=== PATIENT | female | born 1955 | race Caucasian/White ===

== ENCOUNTER 2019-01-04 08:45 | Day surgery (SDC) | payer BC ==
[~2019-01-04] VITALS: Ht 182.9 cm; Wt 72.1 kg
[~2019-01-04 08:45] MED LIST: LEVAQUIN 5500 MG/TA1 PO; NORCO 325 MG-7.1 TAB PO; PARACETAMOL; [UNRECOGNIZED DRUG - OTHER]; [UNRECOGNIZED DRUG - OTHER]
[2019-01-04 09:03] VITALS: BP 110/73; PULSE 79; TEMP 98
[2019-01-04] MEDS ORDERED: OMEGA-3 1000 MG1 CAP PO (09:06)
[2019-01-04] MEDS ORDERED: MULTIPLE VITAMI1 CAP PO (09:06)
[2019-01-04] MEDS ORDERED: CALCIUM CARBON650 M2 PO (09:06)
[2019-01-04 11:20] VITALS: BP 103/68; PULSE 78; TEMP 97.9
--- NOTE | 2019-01-04 11:20 | NUR ---
Pt arrived to room from Endo procedure. Pt alert and oriented. Pt walked to chair with steady gait, x1 nurse assist. Pt denies any pain and nausea. Pt's family in room. Vital signs stable. Pt request coffee and muffin at this time. Call light in reach.
--- NOTE | 2019-01-04 11:22 | NUR ---
Report received from ARMAND Clemons.
[2019-01-04 11:35] VITALS: BP 100/62; PULSE 73; TEMP 97.9
--- NOTE | 2019-01-04 11:35 | NUR ---
Pt tolerating coffee and muffin. Denies any nausea. Pt's family in room. Call light in reach.
[2019-01-04 11:50] VITALS: BP 98/59; PULSE 68; TEMP 97.9
[2019-01-04 12:05] VITALS: BP 100/60; PULSE 68; TEMP 97.9
--- NOTE | 2019-01-04 12:15 | NUR ---
Discharge paperwork explained to pt and pt's . All questions answered to pt's satisfaction. Discharge instructions, med list and procedure information given to pt.
--- NOTE | 2019-01-04 12:18 | NUR ---
Pt discharged from unit. Pt left unit via wheelchair to private vehicle driven by pt's .
== END 2019-01-04 12:18 | disposition home or self-care (01) ==
LOC: SDCO 08:45
DX: D12.8 Benign neoplasm of rectum (principal); K64.0 First degree hemorrhoids; M19.90 Unspecified osteoarthritis, unspecified site; Z86.010 Personal history of colon polyps; Z85.828 Personal history of other malignant neoplasm of skin
CPT/HCPCS: J2250; J3010; J7030

== ENCOUNTER → 2019-04-12 | Outpatient (CLI) | payer BC ==
[~2019-04-12] MED LIST changes: +CALCIUM CARBON650 M2 PO; +MULTIPLE VITAMI1 CAP PO; +OMEGA-3 1000 MG1 CAP PO
== END ==
LOC: MC.RAD 14:46
DX: Z12.31 Encounter for screening mammogram for malignant neoplasm of breast (principal)

== ENCOUNTER → 2021-08-20 | Outpatient (CLI) | payer BC ==
[2021-08-20 12:22] LABS: BASO % 0.8 % (0.0-2.0); EOS # 0.2 K/mm3 (0.0-0.7); EOS % 3.2 % (0-4.0); GRAN # 3.3 K/mm3 (1.4-6.5); GRAN % 64.4 % (42.2-75.2); HEMATOCRIT 38.8 % (37.0-47.0); HEMOGLOBIN 12.3 g/dl (12.5-16.0); LYMPH # 1.2 K/mm3 (1.2-3.4); LYMPH % 24.1 % (20.0-51.0); MEAN CELL VOLUME 103 fl (80.0-100.0); MEAN CORPUSCULAR HEMOGLOBIN 33 pg (27.0-31.0); MEAN CORPUSCULAR HGB CONC 32 g/dl (33.0-37.0); MEAN PLATELET VOLUME 8.8 fl (7.4-10.4); MONO # 0.4 K/mm3 (0.1-0.6); MONO % 7.1 % (1.7-9.3); PLATELET COUNT 233 K/mm3 (130-400); RED BLOOD COUNT 3.77 M/mm3 (4.10-5.30); REDCELL DISTRIBUTION WIDTH-CV 14.2 % (11.5-14.5)
[2021-08-20 12:45] LABS: ERYTHROCYTE SEDIMENTATION RATE 12 mm/hr (0-30)
== END ==
LOC: COL.LAB 11:26
DX: M25.561 Pain in right knee (principal); Z96.651 Presence of right artificial knee joint